=== PATIENT | female | born 1990 | race Caucasian/White ===

== ENCOUNTER → 2017-09-17 | Outpatient (REF) | payer OTHER ==
[2017-09-17 18:16] LABS: CHLAMYDIA DNA AMPLIFICATION NEGATIVE (NEGATIVE); GC DNA AMPLIFICATION NEGATIVE (NEGATIVE)
== END ==
LOC: M SFHCLERA 13:54
DX: N89.8 Other specified noninflammatory disorders of vagina (principal)
CPT/HCPCS: 87086